=== PATIENT | male | born 1960 | race African-American/Black ===

== ENCOUNTER 2025-08-02 09:58 | Outpatient (CLI) | payer OTHER | END 2025-08-02 09:59 | disposition home or self-care (01) | LOC: ULT 09:58 | PROVIDERS: ATTEND Internal Medicine Nephrology | DX: I12.9 Hypertensive chronic kidney disease with stage 1 through stage 4 chronic kidney disease, or unspecified chronic kidney disease (principal); N18.2 Chronic kidney disease, stage 2 (mild) | CPT/HCPCS: 76770; 93975 ==